=== PATIENT | female | born 1940 | race Two or more races ===

== ENCOUNTER 2022-06-29 03:33 | Inpatient (IN) | payer MEDICARE, OTHER ==
[~2022-06-29] VITALS: Ht 167.6 cm; Wt 71.7 kg
--- NOTE | 2022-06-29 03:45 | NUR ---
[facility]ER FROM [facility] C/O GLF RIGHT SIDE HIP PAIN. PATIENT CLAIMED THAT SHE WAS USING A WALKER AND WALKER WAS CAUGHT INTO SOMETHING THAT CAUSING THE FALL. PATIENT IS AOX4. ABLE TO MAKE NEEDS KNOWN. WITH SMALL ABRASIONS ON RIGHT EYEBROW. PLACED COMFORTABLY IN BED. VITALS CHECKED.
--- NOTE | 2022-06-29 03:56 | NUR ---
BROUGHT TO XRAY DEPT
[2022-06-29] MEDS ORDERED: ACETAMINOPHEN ES 500 MG TABLET PO ONE (04:00)
[2022-06-29] MEDS ORDERED: ACETAMINOPHEN ES 500 MG TABLET ONE (04:11)
--- NOTE | 2022-06-29 07:45 | NUR ---
blood drawn and sent to lab
--- NOTE | 2022-06-29 07:45 | NUR ---
iv established. 20G RFA
[2022-06-29 07:54] LABS: BASOPHILS % (AUTO) 0.3 % (0.0-2.0); EOSINOPHILS % (AUTO) 0.6 % (0.0-6.0); HEMATOCRIT 34 % (33-45); HEMOGLOBIN 11.2 g/dL (11.5-14.8); LYMPHOCYTES # (AUTO) 1.4 K/uL (0.8-4.8); LYMPHOCYTES % (AUTO) 19.8 % (20.0-44.0); MEAN CORPUSCULAR HGB CONC 33 g/dl (31.0-36.0); MEAN CORPUSCULAR VOLUME 87 fL (82-100); MONOCYTES # (AUTO) 2.2 K/uL (0.1-1.30); MONOCYTES % (AUTO) 31.3 % (2.0-12.0); NEUTROPHILS # (AUTO) 3.3 K/uL (1.8-8.9); PLATELET COUNT (AUTO) 70 K/uL (150-450); RED BLOOD CELL COUNT(AUTO) 3.92 MIL/uL (4.0-5.2); WHITE BLOOD COUNT (AUTO) 6.9 K/uL (4.3-11.0)
[2022-06-29 08:18] LABS: ALANINE AMINOTRANSFERASE 23 U/L (12-78); ALBUMIN 3.3 g/dL (3.4-5.0); ALKALINE PHOSPHATASE 78 U/L (46-116); ASPARTATE AMINOTRANSFERASE 21 U/L (15-37); BILIRUBIN,DIRECT 0.1 mg/dL (0.0-0.2); BILIRUBIN,TOTAL 0.5 mg/dL (0.2-1.0); CALCIUM, SERUM 8.5 mg/dL (8.5-10.1); CARBON DIOXIDE 26 mmol/L (21-32); CHLORIDE 105 mmol/L (98-107); CREATININE 0.5 mg/dL (0.6-1.3); GLUCOSE 102 mg/dL (74-106); POTASSIUM 3.7 mmol/L (3.5-5.1); SODIUM SERUM 139 mmol/L (136-145); TOTAL PROTEIN, SERUM 6.1 g/dL (6.4-8.2); UREA NITROGEN, BLOOD 15 mg/dL (7-18)
[2022-06-29 08:19] LABS: BAND % (MANUAL) 2 % (0.0-5.0); LYMPHOCYTES % (MANUAL) 20 % (16-48); MONOCYTES % (MANUAL) 28 % (0-11.0); NEUTROPHILS % (MANUAL) 50 (42-76)
--- NOTE | 2022-06-29 08:42 | NUR ---
COVID SWAB TAKEN SENT TO LAB
--- NOTE | 2022-06-29 09:37 | NUR ---
ROOM 311-2 ADMITTING AWARE
--- NOTE | 2022-06-29 09:43 | NUR ---
REPORT GIVEN TO AZEEM COLLEEN
[2022-06-29] MEDS ORDERED: MAG HYDROX/AL HYDROX/SIMETH 30 ML UDC PO PRN (12:30)
[2022-06-29] MEDS ORDERED: MAGNESIUM HYDROXIDE 30 ML UDC PO PRN (12:30)
[2022-06-29] MEDS ORDERED: ACETAMINOPHEN 325 MG TABLET PO PRN (12:30)
[2022-06-29] MEDS ORDERED: Z GUARD REMEDY 4 OZ OINT TP PRN (12:30)
[2022-06-29] MEDS ORDERED: HYDROCODONE/APAP 5/325MG TABLET PO PRN (12:30)
[2022-06-29] MEDS ORDERED: ONDANSETRON HCL/PF 4 MG/2 ML VIAL IVP PRN (12:30)
[2022-06-29] MEDS: ENOXAPARIN SODIUM 40 MG/0.4 ML DISP.SYRIN SQ SCH (13:19)
[2022-06-29 14:01] VITALS: BP 147/69
[2022-06-29] MEDS: IV NS 0.9% 1,000 ML IV PRN (16:10)
[2022-06-29 16:21] VITALS: BP 111/59
--- NOTE | 2022-06-29 17:57 | NUR ---
REGISTER IN CHANCERY NOTE RECIEVED PATIENT VIA ANGELLA, REPORT GIVEN BY RN. PT IS A/O X4, ABLE TO MAKE MAKE NEEDS KNOWN. PT IS ORIENTED TO ROOM AND HOW TO USE THE CALL LIGHT. ON ROOM AIR, BREATHING EVENLY AND UNLABORED, NO SIGNS OF DISTRESS NOTED, ALL BELONGINGS WERE ACCOUNTED FOR, BELONGINGS SHEET SIGNED. IV ACCESS ON RIGHT FOREARM #20 GAUGE, INTACT AND PATENT, HOOKED NORMAL SALINE TO RUN AT 75 ML/HR. VS TAKEN FOLLOWS:P/P 147/69, LA 77, RR 19, TEMP 97.6, SPO2 95%. SKIN ASSESSMENT DONE WITH MULTIPLE SKIN ISSUES AND PHOTOS WERE TAKEN. LUNGS CLEAR BILATERALLYUPON AUSCULTATION, BOWEL SOUNDS PRESENT, PT COMPLAINS OF PAIN ON RIGHT HIP WHEN CHANGING POSITION. SAFETY PRECATION IN PLACE: BED IN LOW, LOCKED POSITION, SIDERAILS UP X2, CALL LIGHT WITHIN REACH. WILL CONTINUE TO MONITOR.
[2022-06-29 18:37] VITALS: BP 125/61
[2022-06-29 18:38] VITALS: BP 112/60
[2022-06-29 18:39] VITALS: BP 111/69
--- NOTE | 2022-06-29 18:40 | NUR ---
CLINTONSES NOTES ORTHOSTATIC BLOOD PRESSURE TAKEN WITH RESULT FOLLOWS: SITTING: B/P 112/60 DC 79, STANDING: B/P 111/69 DC 95, SUPINE: B/P 125/61 DC 89.
--- NOTE | 2022-06-29 19:20 | NUR ---
MS RN CLOSING NOTE Patient in bed, awake. A/O x 3, but forgetful at times. Able to make needs known. Stable on room air, no SOB or s/s of distress noted. IV access on RFA #20 infusing NS at 75 ml/hr. Patient denies any pain or discomfort at this time. Safety precautions maintained: bed in low, locked position; siderails up x2, call light within reach. Will endorse to shift mgr nurse for BRANDY
--- NOTE | 2022-06-29 19:30 | NUR ---
MS RN OPENING NOTE RECEIVED PT AWAKE, IN BEDSIDE COMMODE TRYING TO VOID. A/O X3, ABLE TO MAKE NEEDS KNOWN, WITH EPISODES OF FORGETFULNESS PER DAY SHIFT NURSE. ON RA WITH NO S/S OF SOB OR DISTRESS. DENIES PAIN/DISCOMFORT AT THIS TIME. IV ACCESS RFA #20G RUNNING NS @ 75ML/HR, TOLERATING WELL. SAFETY PRECAUTIONS IN PLACE: BED LOCKED AND IN LOWEST POSITION, SIDE RAILS UP X3, BED ALARM ON, CALL LIGHT AND TRAY TABLE WITHIN REACH. WILL CONTINUE TO MONITOR AND ASSIST.
[2022-06-29 20:00] VITALS: BP_SYST 124; BP_SYST 127; BP_DIAS 73
--- NOTE | 2022-06-29 20:30 | NUR ---
RN NOTE PT REQUESTING TO GET UP OFTEN TO USE BEDSIDE COMMODE BUT PT VERY UNSTEADY WITH SEVERE WEAKNESS NOTED. OFFERED TO PUT ON PUREWICK AND PT AGREED FOR IT TO BE PLACED.
[2022-06-30] MEDS: IV NS 0.9% 1,000 ML IV PRN (05:43)
--- NOTE | 2022-06-30 07:01 | NUR ---
MS RN CLOSING NOTE PT AWAKE IN BED AT THIS TIME. A/O X3, ABLE TO MAKE NEEDS KNOWN, WITH EPISODES OF FORGETFULNESS/CONFUSION, REQUIRED FREQUENT REORIENTATION. STABLE ON RA WITH NO S/S OF SOB OR DISTRESS. DENIES PAIN/DISCOMFORT AT THIS TIME. IV ACCESS RFA #20G RUNNING NS @ 75ML/HR, TOLERATING WELL. PUREWICK INTACT DRAINING CLEAR YELLOW URINE. ALL CARE PROVIDED AND MEDS TOLERATED WELL. SAFETY PRECAUTIONS MAINTAINED: BED LOCKED AND IN LOWEST POSITION, SIDE RAILS UP X3, BED ALARM ON, CALL LIGHT AND TRAY TABLE WITHIN REACH. WILL ENDORSE BRANDY TO DAY SHIFT NURES. Addendum: 06/30/22 at 0725 by SADIA BEE RN PUREWICK TOTAL OUTPUT 600 ML.
[2022-06-30 07:30] VITALS: BP 154/80
[2022-06-30] MEDS ORDERED: PANTOPRAZOLE 40 MG TABLET.DR PO SCH (07:30)
--- NOTE | 2022-06-30 07:45 | NUR ---
RN MS NOTES PT IN BED, ASLEEP, EASY TO AROUSE, NO SIGN OF PAIN OR DISTRESS, CALL LIGHT WITHIN REACH, IV FLUIDS INFUSING WELL, KEPT WARM AND COMFORTABLE IN BED.
--- NOTE | 2022-06-30 10:20 | NUR ---
WOUND CARE CONSULT; PT PRESENTS WITH MULTIPLE AREAS OF SKIN DISCOLORATION AND SUZANNA TO RT SIDE OF SCALP, PRESENT ON ADMISSION. RECOMMENDATIONS MADE FOR SKIN PROTECTION. DISCUSSED WITH NURSING STAFF. MD IN AGREEMENT WITH PLAN OF CARE.
[2022-06-30] MEDS ORDERED: MAG30ORA PO (11:21)
[2022-06-30] MEDS ORDERED: MAGN400O6 PO (11:21)
[2022-06-30] MEDS ORDERED: LOPE2CAP40 PO (11:21)
[2022-06-30] MEDS ORDERED: BISA10SU11 RC (11:21)
[2022-06-30] MEDS ORDERED: ACET-868 PO (11:21)
[2022-06-30] MEDS: ENOXAPARIN SODIUM 40 MG/0.4 ML DISP.SYRIN SQ SCH (12:23)
--- NOTE | 2022-06-30 14:20 | NUR ---
SW Consult: SW consult requested for a fall. Pt appeared to be pleasant and cooperative. Pt was alert and oriented x3. Pt brought to the hospital due to sacral fx. Pt stated that she is currently residing at [facility] and would want to return back home stable. She stated she fell because she was dizzy at home. With further investigation, pt had a medical issue and fell. Pt requesting the necessity assistance at her [facility]. Pt stated that she is a and her passed in Feb 2022. She recently lost her hospital. Pt is a . 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 Pt stated that she has children. Pt denies suicidal or homicidal ideation. Pt denies visual/auditory hallucinations. DC PLAN: Pt would want to return back to her memory care unit [facility] when stable.
[2022-06-30 16:00] VITALS: BP 132/67
--- NOTE | 2022-06-30 18:30 | NUR ---
RN MS NOTES PT IN BED, AWAKE, ALERT AND ORIENTED, WITH PERIODS OF BEING CONFUSED, DENIES PAIN, NOT IN DISTRESS, IV FLUIDS INFUSING WELL, CALL LIGHT WITHIN REACH, SEEN BY PT, TOLERATED ACTIVITY WELL, SEEN BY ORTHO, NEURO AND DR. WAITE, PT FOR TRANSFER TO [facility] FOR HLOC PER NEURO RECOMMENDATION, DISCHARGE ORDER GIVEN TO ALLEY MACIAS OF [facility], BELONGINGS ACCOUNTED FOR, PT REFUSED FURTHER SKIN ASSESSMENT AND PHOTOS, PICKED UP BY 2 AMBULANCE PERSONNEL, LEFT VIA GUERNEY IN STABLE CONDITION, SON WING INFORMED AND AGREED FOR TRANSFER.
[2022-07-01 05:49] LABS: BILIRUBIN,URINE NEGATIVE (NEGATIVE); COLOR,URINE YELLOW (YELLOW); LEUKOCYTE ESTERASE ,URINE NEGATIVE (NEGATIVE); NITRITE, URINE NEGATIVE (NEGATIVE); PH,URINE 6.5 (5.0-8.0); PROTEIN,URINE NEGATIVE (NEGATIVE); UGLUCOSE NEGATIVE (NEGATIVE); UROBILINOGEN,URINE 0.2 EU/dL (0.2)
[2022-07-01 05:50] LABS: BACTERIA,URINE Rare /HPF (None Seen); RBC,URINE 0-2 /HPF (0-2); SQUAMOUS EPITHELIAL CELL,UR Few /HPF (None Seen); WBC,URINE 0-2 /HPF (0-3)
== END 2022-06-30 18:25 | disposition short-term general hospital (02) | DRG 552 ==
LOC: ER 03:37 → MED 09:39
PROVIDERS: ATTEND Nurse Practitioner Acute Care
DX: S32.110A Nondisplaced Zone I fracture of sacrum, initial encounter for closed fracture (principal); E44.1 Mild protein-calorie malnutrition; G91.9 Hydrocephalus, unspecified; G93.89 Other specified disorders of brain; I10 Essential (primary) hypertension; W19.XXXA Unspecified fall, initial encounter; E88.09 Other disorders of plasma-protein metabolism, not elsewhere classified; R29.6 Repeated falls; Y93.01 Activity, walking, marching and hiking; Z91.81 History of falling; Z98.2 Presence of cerebrospinal fluid drainage device
CPT/HCPCS: 36415; 70450-TC; 71045-TC; 73610-TC; 73700-TC; 80048-TC; 80076-TC; 81001; 84484-TC; 85025-TC; 87081-TC; 93307-TC; 97116-TC; 97530-TC; A4223; G0378; J1650; J7030

== ENCOUNTER 2024-01-11 15:21 | Inpatient (IN) | payer MEDICARE, OTHER ==
[~2024-01-11] VITALS: Ht 162.6 cm; Wt 53.5 kg
[~2024-01-11 15:21] MED LIST: ACET-868 PO; BISA10SU11 RC; LOPE2CAP40 PO; MAG30ORA PO; MAGN400O6 PO
[2024-01-11 16:29] LABS: BASOPHILS % (AUTO) 0.4 % (0.0-2.0); EOSINOPHILS # (AUTO) 0.1 K/uL (0.0-0.7); EOSINOPHILS % (AUTO) 1.4 % (0.0-6.0); HEMATOCRIT 40 % (33-45); HEMOGLOBIN 13.3 g/dL (11.5-14.8); LYMPHOCYTES # (AUTO) 1.4 K/uL (0.8-4.8); LYMPHOCYTES % (AUTO) 20.3 % (20.0-44.0); MEAN CORPUSCULAR HEMOGLOBIN 27 PG (26.0-33.0); MEAN CORPUSCULAR HGB CONC 33 g/dl (31.0-36.0); MEAN CORPUSCULAR VOLUME 83 fL (82-100); MONOCYTES # (AUTO) 1.1 K/uL (0.1-1.30); MONOCYTES % (AUTO) 15.5 % (2.0-12.0); NEUTROPHILS # (AUTO) 4.3 K/uL (1.8-8.9); NEUTROPHILS % (AUTO) 62.4 % (43.0-81.0); PLATELET COUNT (AUTO) 79 K/uL (150-450); RED BLOOD CELL COUNT(AUTO) 4.86 MIL/uL (4.0-5.2); RED CELL DISTRIBUTION WIDTH 15.1 % (11.5-15.0); WHITE BLOOD COUNT (AUTO) 6.8 K/uL (4.3-11.0)
[2024-01-11 16:37] LABS: CALCIUM, SERUM 8.7 mg/dL (8.5-10.1); CARBON DIOXIDE 27 mmol/L (21-32); CHLORIDE 103 mmol/L (98-107); CREATININE 0.7 mg/dL (0.6-1.3); GLUCOSE 106 mg/dL (74-106); POTASSIUM 4.6 mmol/L (3.5-5.1); SODIUM SERUM 135 mmol/L (136-145); UREA NITROGEN, BLOOD 8 mg/dL (7-18)
[2024-01-11 16:49] LABS: ALANINE AMINOTRANSFERASE 13 U/L (12-78); ALBUMIN 3.3 g/dL (3.4-5.0); ALKALINE PHOSPHATASE 83 U/L (46-116); ASPARTATE AMINOTRANSFERASE 19 U/L (15-37); BILIRUBIN,DIRECT 0.1 mg/dL (0.0-0.2); BILIRUBIN,TOTAL 0.5 mg/dL (0.2-1.0); LIPASE 49 U/L (16-77); NT-PRO BNP 338 pg/mL (0-125); TOTAL PROTEIN, SERUM 6.8 g/dL (6.4-8.2)
[2024-01-11 17:10] LABS: ANISOCYTOSIS 1+; BASOPHILS % (MANUAL) 0 % (0.0-2.0); EOSINOPHILS % (MANUAL) 2 % (0-4); LYMPHOCYTES % (MANUAL) 18 % (16-48); MONOCYTES % (MANUAL) 14 % (0-11.0); NEUTROPHILS % (MANUAL) 66 (42-76); PLATELET ESTIMATE DECREASED
[2024-01-11] MEDS ORDERED: AZIT250T13 PO (17:47)
[2024-01-11] MEDS ORDERED: ZOLPIDEM TARTRATE 5 MG TABLET PO PRN (18:30)
[2024-01-11] MEDS: IV NS 0.9% 1,000 ML BAG IV ONE (18:30)
[2024-01-11] MEDS ORDERED: ACETAMINOPHEN 325 MG TABLET PO PRN (18:30)
[2024-01-11] MEDS ORDERED: Z GUARD REMEDY 4 OZ OINT TP PRN (18:30)
[2024-01-11] MEDS ORDERED: MAGNESIUM HYDROXIDE 30 ML UDC PO PRN (18:30)
[2024-01-11] MEDS ORDERED: IV NS 0.9% 1,000 ML IV PRN (18:30)
[2024-01-11] MEDS ORDERED: MAG HYDROX/AL HYDROX/SIMETH 30 ML UDC PO PRN (18:30)
[2024-01-11] MEDS: PIPERACILLIN /TAZOBACTAM 3.375 G in IV D5W 50 ML IV ONE (18:35)
[2024-01-11] MEDS: VANCOMYCIN 1 GM in IV D5W 250 ML IV ONE (19:01)
[2024-01-11 20:00] VITALS: BP 186/84; TEMP 98.1; O2SAT 96
[2024-01-11] MEDS ORDERED: hydrALAZINE HCL 25 MG TABLET PO PRN (22:00)
[2024-01-11] MEDS: CEFEPIME 2 GM in IV D5W 100 ML IV SCH (22:09)
[2024-01-12 02:21] LABS: APPEARANCE,URINE CLEAR (CLEAR); BILIRUBIN,URINE NEGATIVE (NEGATIVE); BLOOD, URINE NEGATIVE Ery/uL (NEGATIVE); COLOR,URINE YELLOW (YELLOW); KETONES,URINE NEGATIVE (NEGATIVE); LEUKOCYTE ESTERASE ,URINE NEGATIVE (NEGATIVE); NITRITE, URINE NEGATIVE (NEGATIVE); PH,URINE 7.5 (5.0-8.0); PROTEIN,URINE NEGATIVE (NEGATIVE); UGLUCOSE NEGATIVE (NEGATIVE); UROBILINOGEN,URINE 0.2 EU/dL (0.2)
[2024-01-12 06:59] LABS: BASOPHILS % (AUTO) 0.1 % (0.0-2.0); EOSINOPHILS # (AUTO) 0.1 K/uL (0.0-0.7); EOSINOPHILS % (AUTO) 1.4 % (0.0-6.0); HEMATOCRIT 40 % (33-45); HEMOGLOBIN 13.4 g/dL (11.5-14.8); LYMPHOCYTES # (AUTO) 1.1 K/uL (0.8-4.8); LYMPHOCYTES % (AUTO) 18.7 % (20.0-44.0); MEAN CORPUSCULAR HEMOGLOBIN 27 PG (26.0-33.0); MEAN CORPUSCULAR HGB CONC 33 g/dl (31.0-36.0); MEAN CORPUSCULAR VOLUME 82 fL (82-100); MONOCYTES # (AUTO) 1.1 K/uL (0.1-1.30); MONOCYTES % (AUTO) 18.1 % (2.0-12.0); NEUTROPHILS # (AUTO) 3.7 K/uL (1.8-8.9); NEUTROPHILS % (AUTO) 61.7 % (43.0-81.0); PLATELET COUNT (AUTO) 79 K/uL (150-450); RED BLOOD CELL COUNT(AUTO) 4.92 MIL/uL (4.0-5.2); RED CELL DISTRIBUTION WIDTH 14.8 % (11.5-15.0); WHITE BLOOD COUNT (AUTO) 5.9 K/uL (4.3-11.0)
[2024-01-12 07:08] LABS: CALCIUM, SERUM 8.3 mg/dL (8.5-10.1); CARBON DIOXIDE 27 mmol/L (21-32); CHLORIDE 104 mmol/L (98-107); CREATININE 0.6 mg/dL (0.6-1.3); GLUCOSE 99 mg/dL (74-106); MAGNESIUM 1.9 mg/dL (1.8-2.4); PHOSPHORUS 3.3 mg/dL (2.5-4.9); POTASSIUM 3.9 mmol/L (3.5-5.1); SODIUM SERUM 140 mmol/L (136-145); UREA NITROGEN, BLOOD 4 mg/dL (7-18)
[2024-01-12 08:00] VITALS: BP 166/89; TEMP 98.1; O2SAT 95
[2024-01-12] MEDS ORDERED: ENOXAPARIN SODIUM 40 MG/0.4 ML DISP.SYRIN SQ SCH (08:30)
[2024-01-12] MEDS ORDERED: ASPIRIN 81 MG TAB.CHEW PO SCH (09:00)
[2024-01-12] MEDS: ASPIRIN 81 MG TAB.CHEW PO SCH (09:08)
[2024-01-12] MEDS: LISINOPRIL (10MG) 10 MG TABLET PO SCH (09:08)
[2024-01-12] MEDS ORDERED: IOHEXOL-350 100 ML VIAL IV ONE (09:17)
[2024-01-12] MEDS ORDERED: IV NS 0.9% 250 ML IV ONE (09:17)
[2024-01-12] MEDS ORDERED: CT SWABBABLE VALVE TRANS SET 1 EA INFUS.SET MC ONE (09:17)
[2024-01-12] MEDS ORDERED: FERR325T24 PO (09:25)
[2024-01-12 11:30] LABS: BAND % (MANUAL) 2 % (0.0-5.0); LYMPHOCYTES % (MANUAL) 18 % (16-48); MONOCYTES % (MANUAL) 14 % (0-11.0); NEUTROPHILS % (MANUAL) 66 (42-76); PLATELET ESTIMATE DECREASED
[2024-01-12 15:32] LABS: THYROID STIMULATING HORMONE 0.93 uIU/mL (0.358-3.74)
[2024-01-12 16:12] VITALS: BP 120/58; TEMP 98.1; O2SAT 95
[2024-01-12] MEDS: VANCOMYCIN HCL 1.25 GM in IV D5W 250 ML IV SCH (17:01)
[2024-01-12 20:00] VITALS: BP 125/76; TEMP 97.9; O2SAT 94
[2024-01-13] VITALS: BP 125/53; TEMP 97.8; O2SAT 97
[2024-01-13 04:00] VITALS: BP 117/73; TEMP 98.1; O2SAT 96
[2024-01-13 07:41] LABS: CALCIUM, SERUM 8.5 mg/dL (8.5-10.1); CARBON DIOXIDE 24 mmol/L (21-32); CHLORIDE 103 mmol/L (98-107); CREATININE 0.6 mg/dL (0.6-1.3); GLUCOSE 85 mg/dL (74-106); POTASSIUM 4.8 mmol/L (3.5-5.1); SODIUM SERUM 135 mmol/L (136-145); UREA NITROGEN, BLOOD 7 mg/dL (7-18)
[2024-01-13 07:47] LABS: CHOLESTEROL 162 mg/dL (<200); HDL CHOLESTEROL 53 mg/dL (40-60); LDL 94 mg/dL (0-99); TRIGLYCERIDES 94 mg/dL (30-150)
[2024-01-13 08:00] VITALS: BP 129/58; TEMP 98.1; O2SAT 98
[2024-01-13] MEDS: ASPIRIN 325 MG TABLET PO SCH (10:06)
[2024-01-13 12:07] LABS: FOLIC ACID 11.9 ng/mL (>3.0)
[2024-01-13 20:00] VITALS: BP 124/59; TEMP 97.7; O2SAT 96
[2024-01-14] VITALS: BP 131/71; TEMP 98.1; O2SAT 97
[2024-01-14 04:00] VITALS: BP 132/68; TEMP 97.7; O2SAT 97
[2024-01-14 07:05] LABS: CALCIUM, SERUM 8.6 mg/dL (8.5-10.1); CARBON DIOXIDE 28 mmol/L (21-32); CHLORIDE 105 mmol/L (98-107); CREATININE 0.7 mg/dL (0.6-1.3); GLUCOSE 94 mg/dL (74-106); POTASSIUM 3.9 mmol/L (3.5-5.1); SODIUM SERUM 140 mmol/L (136-145); UREA NITROGEN, BLOOD 11 mg/dL (7-18)
[2024-01-14 08:00] VITALS: BP 130/61; TEMP 98.6; O2SAT 94
[2024-01-14] MEDS ORDERED: ASPI-1169 PO (08:06)
[2024-01-14] MEDS ORDERED: SIMV-46 PO (08:06)
[2024-01-14] MEDS ORDERED: AMOX-430 PO (08:06)
[2024-01-14] MEDS: ASPIRIN 81 MG TAB.CHEW PO SCH (09:49)
[2024-01-14 09:50] VITALS: BP 130/61
[2024-01-16 15:10] LABS: VITAMIN B1 THIAMINE,WB 91.4 nmol/L (66.5-200.0)
== END 2024-01-14 12:30 | DRG 193 ==
LOC: ER 15:25 → MED 17:23 → TELE 01-12 08:27
PROVIDERS: ADMIT Internal Medicine; ATTEND Internal Medicine
DX: J15.9 Unspecified bacterial pneumonia (principal); G93.41 Metabolic encephalopathy; E87.1 Hypo-osmolality and hyponatremia; T85.890A Other specified complication of nervous system prosthetic devices, implants and grafts, initial encounter; G91.9 Hydrocephalus, unspecified; D69.6 Thrombocytopenia, unspecified; G93.89 Other specified disorders of brain; Z20.822 Contact with and (suspected) exposure to COVID-19; R53.1 Weakness; Y92.009 Unspecified place in unspecified non-institutional (private) residence as the place of occurrence of the external cause; Y84.8 Other medical procedures as the cause of abnormal reaction of the patient, or of later complication, without mention of misadventure at the time of the procedure
CPT/HCPCS: 36415; 70496-TC; 71045-TC; 80048-TC; 80061-TC; 80076-TC; 80202-TC; 82607-TC; 82962-TC; 83605-TC; 83690-TC; 83735-TC; 83880; 83921; 84100-TC; 84425; 84443-TC; 84484-TC; 85025-TC; 87040-TC; 87086-TC; 92526; 92611-TC; 93307-TC; 93880-TC; 97110-TC; 97112-TC; 97116-TC; 97530-TC; 97535-TC; A4223; G0378; J0692; J2543; J3370; J7030; J7050; J7060; Q9967

== ENCOUNTER 2024-11-15 15:25 | Emergency (ER) | payer MEDICARE, OTHER ==
[~2024-11-15] VITALS: Ht 152.4 cm; Wt 54.4 kg
[~2024-11-15 15:25] MED LIST changes: +AMOX-430 PO; +ASPI-1169 PO; -BISA10SU11 RC; +FERR325T24 PO; +SIMV-46 PO
[2024-11-15 15:54] LABS: RED BLOOD CELL COUNT(AUTO) 4.64 MIL/uL (4.0-5.2); RED CELL DISTRIBUTION WIDTH 14.3 % (11.5-15.0); WHITE BLOOD COUNT (AUTO) 18.4 K/uL (4.3-11.0)
[2024-11-15 15:56] LABS: PLATELET COUNT (AUTO) 61 K/uL (150-450)
[2024-11-15 16:03] LABS: CALCIUM, SERUM 8.4 mg/dL (8.5-10.1); CREATININE 0.7 mg/dL (0.6-1.3); SODIUM SERUM 130 mmol/L (136-145); UREA NITROGEN, BLOOD 11 mg/dL (7-18)
[2024-11-15 16:08] LABS: ASPARTATE AMINOTRANSFERASE 17 U/L (15-37); TOTAL PROTEIN, SERUM 6.9 g/dL (6.4-8.2)
[2024-11-15 16:25] LABS: LYMPHOCYTES % (MANUAL) 4 % (16-48); MONOCYTES % (MANUAL) 12 % (0-11.0); NEUTROPHILS % (MANUAL) 84 (42-76); PLATELET ESTIMATE DECREASED
[2024-11-15] MEDS: IV LR 1000 ML 1,000 ML BAG IV ONE (16:36)
[2024-11-15] MEDS: CEFEPIME 1 GM in IV D5W 50 ML IV ONE (17:04)
[2024-11-15] MEDS ORDERED: TRANEXAMIC ACID 1,000 MG in IV NS 0.9% 50 ML IV ONE (18:30)
[2024-11-15 18:48] VITALS: BP 153/61; TEMP 98.1; O2SAT 96
== END 2024-11-15 18:49 | disposition short-term general hospital (02) ==
LOC: ER 15:28
DX: S06.5XAA Traumatic subdural hemorrhage with loss of consciousness status unknown, initial encounter (principal); F03.90 Unspecified dementia, unspecified severity, without behavioral disturbance, psychotic disturbance, mood disturbance, and anxiety; Z79.82 Long term (current) use of aspirin; Z88.5 Allergy status to narcotic agent; Z98.2 Presence of cerebrospinal fluid drainage device; W18.39XA Other fall on same level, initial encounter; Y93.89 Activity, other specified; Y92.89 Other specified places as the place of occurrence of the external cause; Y99.9 Unspecified external cause status
CPT/HCPCS: 99291; 72125; 96365; 93005; 71045; 70450; 85027; 80048; 87040 ×2; 83605; 80076; 85007; 36415; 84484 ×2; L0172; J7060; J7120 ×2; J0692